=== PATIENT | male | born 1970 | race Caucasian/White ===

== ENCOUNTER 2016-11-07 15:17 | Emergency (ER) | payer OTHER ==
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
--- NOTE | 2016-11-07 16:22 | ED ORDER SUMMARY ---
..... Patient: MATIAS DARDEN OrderSheet [facility] VisitID: [id number] [place] [address] 46y, M Registration Date/Time: 11/07/2016 ORDER SHEET Weight: 56.6 kg (stated) Allergies: Penicillin GENERAL ORDERS: Dress Wounds (16:22 11/07/2016 KYUNGivens A.R.N.P.) (16:[facility] MEDICATION ORDERS: IV FLUIDS: ORDER SHEET NOTES: [Electronically signed by Farhana Galdamez A.R.N.P. (17:20 11/07/2016)] [Electronically signed by Rica Mack (22:55 11/07/2016)] [Electronically locked/signed by Rica Mack (22:55 11/07/2016)]
--- NOTE | 2016-11-07 16:22 | ED ORDER SUMMARY ---
..... Patient: MATIAS DARDEN OrderSheet [facility] VisitID: [id number] [place] [address] 46y, M Registration Date/Time: 11/07/2016 ORDER SHEET Weight: 56.6 kg (stated) Allergies: Penicillin GENERAL ORDERS: Dress Wounds (16:22 11/07/2016 KYUNGivens A.R.N.P.) (16:24 [facility] [place] MEDICATION ORDERS: IV FLUIDS: ORDER SHEET NOTES: [Electronically signed by Farhana Galdamez A.R.N.P. (17:20 11/07/2016)] [Electronically signed by Rica Mack (22:55 11/07/2016)] [Electronically locked/signed by Rica Mack (22:55 11/07/2016)]
--- NOTE | 2016-11-07 22:55 | ED MED RECONCILIATION SUMMARY ---
Patient: MATIAS DARDEN Medication Reconciliation Report [facility] VisitID: [id number] [place] [address] 46y, M Registration Date/Time: 11/07/2016 Weight: 56.6 kg Height/Length: 75 in. BMI: 15.6 ALLERGIES: Penicillin The patient's Home Medications are listed below: THE FOLLOWING MEDICATIONS NEED TO BE RECONCILED: Acetaminophen Oral 500 mg, 3x a day Aspirin Oral (325 mg) 1 tablet, daily BuPROPion HCl Oral 100 mg, 2x a day Cholecalciferol Oral (1000 unit), daily Cyanocobalamin Oral (1000 mcg) 1 tablet, daily Cyclobenzaprine HCl Oral 10 mg, 3x a day Enoxaparin Sodium Subcutaneous 30 mg, 2x a day Famotidine Oral 20 mg, daily Fluconazole Oral 200 mg, 2x a day Folic Acid Oral Mirtazapine Oral Multivitamins Oral OxyCODONE HCl Oral, for hip surgery Polyethylene Glycol 3350 Oral Probiotic Oral Ranitidine & Diet Manage Prod Oral RisperiDONE Oral (1 mg) 1-1/2 tablets, at bedtime Senna Oral Sertraline HCl Oral 150 mg, daily TraZODone HCl Oral 100 mg, at bedtime The source(s) of the original Home Medication information: patient The following Medications were given to the patient in the Emergency Department: None. The following Medications were prescribed to the patient: None.
--- NOTE | 2016-11-07 22:55 | ED MAR SUMMARY ---
..... Medication Administration Record [facility] [address], [place] [id number] Patient: MATIAS DARDEN Visit ID: [id number] 46y, M Weight: 56.6 kg Height/Length: 75 in BMI: 15.6 ALLERGIES: Penicillin
--- NOTE | 2016-11-07 22:55 | ED MED RECONCILIATION SUMMARY ---
Patient: MATIAS DARDEN Medication Reconciliation Report [facility] VisitID: [id number] [place] [address] 46y, M Registration Date/Time: 11/07/2016 Weight: 56.6 kg Height/Length: 75 in. BMI: 15.6 ALLERGIES: Penicillin The patient's Home Medications are listed below: THE FOLLOWING MEDICATIONS NEED TO BE RECONCILED: Acetaminophen Oral 500 mg, 3x a day Aspirin Oral (325 mg) 1 tablet, daily BuPROPion HCl Oral 100 mg, 2x a day Cholecalciferol Oral (1000 unit), daily Cyanocobalamin Oral (1000 mcg) 1 tablet, daily Cyclobenzaprine HCl Oral 10 mg, 3x a day Enoxaparin Sodium Subcutaneous 30 mg, 2x a day Famotidine Oral 20 mg, daily Fluconazole Oral 200 mg, 2x a day Folic Acid Oral Mirtazapine Oral Multivitamins Oral OxyCODONE HCl Oral, for hip surgery Polyethylene Glycol 3350 Oral Probiotic Oral Ranitidine & Diet Manage Prod Oral RisperiDONE Oral (1 mg) 1-1/2 tablets, at bedtime Senna Oral Sertraline HCl Oral 150 mg, daily TraZODone HCl Oral 100 mg, at bedtime The source(s) of the original Home Medication information: patient The following Medications were given to the patient in the Emergency Department: None. The following Medications were prescribed to the patient: None.
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
--- NOTE | 2016-11-07 22:55 | ED MAR SUMMARY ---
..... Medication Administration Record [facility] [address] [place], [place] [id number] Patient: MATIAS DARDEN Visit ID: [id number] 46y, M Weight: 56.6 kg Height/Length: 75 in BMI: 15.6 ALLERGIES: Penicillin
== END 2016-11-07 16:35 | disposition home or self-care (01) ==
LOC: ED SRH 15:17
DX: M79.1 Myalgia (principal); V49.9XXD Car occupant (driver) (passenger) injured in unspecified traffic accident, subsequent encounter; Z98.890 Other specified postprocedural states; Z48.89 Encounter for other specified surgical aftercare; K21.9 Gastro-esophageal reflux disease without esophagitis; F17.210 Nicotine dependence, cigarettes, uncomplicated; Z79.82 Long term (current) use of aspirin; Z79.899 Other long term (current) drug therapy; Z88.0 Allergy status to penicillin
CPT/HCPCS: 83753